=== PATIENT | male | born 1945 | race Caucasian/White ===

== ENCOUNTER 2018-08-23 17:28 | Inpatient (IN) ==
[2018-08-23] MEDS ORDERED: oxyCODONE HCL 5 MG TABLET PO PRN (19:15)
[2018-08-23] MEDS ORDERED: ONDANSETRON 4 MG/2 ML VIAL IV PRN (19:15)
[2018-08-23] MEDS ORDERED: BISACODYL 10 MG SUPP.RECT PR PRN (19:15)
[2018-08-23] MEDS ORDERED: NALOXONE HCL 0.4 MG/ML VIAL IV PRN (19:15)
[2018-08-23] MEDS ORDERED: DEXTROSE 50% 50 ML VIAL IV PRN (19:20)
[2018-08-23] MEDS ORDERED: DEXTROSE 31 GM ORAL.SUSP PO PRN (19:20)
--- NOTE | 2018-08-23 19:31 | Internal Med History&Physical ---
Medical - H&P: HPI Patient information: Note initiated : 08/23/18 at 7:22 pm Service Date, if different from initiated Date: [] Patient: Kemar Farris a 72 y/o M admitted on 08/23/18 for acute kidney injury. Chief Complaint: [] History of present illness: Mr. Farris is a 72 year old M presented to the hospital today from outside facility as a direct admit The patient has h/o DM, HTN, HLD, presented to the his PCP for evaluation of not feeling well, subjective sensation of chills, and weight loss of 18 lbs over 1 month, his PCP ran some labs which showed a creat > 4.0, pt was therefore sent to the ER The patient notes that approximately 4-6 weeks ago he had an episode of vomiting, and stomach upset, since then he has been having intermittent chills. The patient has had decreased appetite and has not been eating and drinking well since then. He has progressively lost 18 pounds of weight over this time. The patient was concerned about this and finally went to see his primary care provider. His PCP ran some labs found his creatinine was elevated and advised him to go to the emergency room for further evaluation. According to the patient he has had chronic abdominal pain, bloating-like sensation mild no aggravating or relieving factors, he has been taking some NSAIDs for his subjective sensation of chills as well as the abdominal pain and headaches. The patient denies any diarrhea, but has had increased nausea and decreased appetite. The patient has chronic headaches, has had intermittent blurring of vision which she attributes to low sugar values. The patient also reports some dizziness mild. He denies any difficulty in swallowing, he had only one episode of vomiting and since then none, denies any blood in the stools denies any diarrhea. He does admit to having some burning when he pees, he denies any blood in the stools. He denies any cough chest pain shortness of breath skin rashes joint pains he denies any bleeding from gums denies any depression. He does have history of chronic headaches he notes that he has had multiple workup done for same. His PCP started him on topiramate approximately 6 weeks ago. He was on topiramate in the past however has not been released taking it but started taking it at 50 mg strength 6 weeks ago. He stopped it a few days ago. The patient has also been taking his hydrochlorothiazide lisinopril and atorvastatin, he has not been very compliant with his metformin because he was concerned about his sugars dropping In the emergency room at the outside facility, the patient had a normal WBC count at 7.2, hemoglobin 13.3 platelets 223 hematocrit 39.5, sodium 138 potassium 3.8 chloride 104 bicarbonate 19 BUN 90 creatinine 4.2 glucose 195, anion gap 15, total protein was 7.5 calcium 7.8 total bilirubin normal liver function test was normal lipase were mildly elevated at 244, A1c was 7.2 CT abdomen pelvis was done which reports no acute findings, 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 The patient reports he had a chest x-ray done the ER provider did report that the patient chest x-ray was negative I did not find a report along with the paperwork sent The outside facility did not have nephrology coverage and therefore the patient was sent here for further evaluation All systems: reviewed and no additional remarkable complaints except as stated (as per HPI rest negative) Medical - H&P: PMH Medical history: HTN DM HLD Chr Headche chr abdominal bloating Surgical history: achillis tendon repair/ tear Family history: reviewed and not pertinent Social history: ex smoker, quit 50 yrs ago occasional etoh no thc denies other recreational drug use Medical - H&P: Exam - Constitutional Exam: GENERAL: The patient is a well-developed, thin gentleman in no apparent distress. Is alert and oriented x3. VITAL SIGNS: Reviewed and as noted elsewhere. HEENT: Head is normocephalic and atraumatic. Extraocular muscles are intact. Pupils are equal, round, and reactive to light. Nares appeared normal. Mouth appears any without lesions, has poor dentition with missing teeth. Mucous membranes are dry NECK: Normal to inspection, Supple, No lymphadenopathy or thyromegaly. LUNGS: Air entry equal on both sides, no wheezing, crackles or rhonchi noted. No accessory muscles of respiration HEART: Regular rate and rhythm normal, S1 and S2 heard, no Gallop, S3 or Rub Noted, No Gross murmur heard. ABDOMEN: Soft, nontender, and nondistended. Positive bowel sounds. No hepat osplenomegaly was noted. EXTREMITIES: No cyanosis, clubbing, rash, lesions or edema. NEUROLOGIC: Cranial nerves II through XII are grossly intact. Motor and Sensory System Grossly Intact PSYCHIATRIC: Normal affect, Normal Mood. Appropriate Behavior. SKIN: No ulceration or wounds noted, No jaundice, No rash noted. Medical - H&P: A/P - Narrative A/P Narrative: A/P Acute Kidney Injury -Due to dehydration/ decreased intake/ use of HCTZ/lisinopril and NSAIDs. recheck labs check CK, UA, urine lytes, prot creat ration. CT is neg for hydronephrosis. Pt making urine, monitor I/O, avoid nephrotoxic agents, Nephrology consulted. Nausea/ Abdominal discomfort/ weight loss - could be from use of topiramate, Uremia could be causing same, PPI for now. CT Was negative. check tsh, HIV< esr crp, Check blood cx given pt has complained about chills persistent. Acidosis - Pt has bicarb of 19, acidotic from topiramate(has carbonic anhydrase like activity), vs renal failure, IV fluids for now, pt making urine DM -ssi insulin for now.hold metformin HTN -Hold bp meds HLD - continue statin/ verify dose DVT -HEP sq Diet -Carb consistent/renal Code status -Full code
--- NOTE | 2018-08-23 19:37 | Nephrology Consult Note ---
History of Present Illness - Reason for Consult Patient information: Note initiated : 08/23/18 at 7:35 pm Patient: Kemar Farris 72 y/o M admitted on 08/23/18 for acute kidney injury. Consult date: 08/23/18 acute renal failure, metabolic acidosis Requesting physician: Alvin Mccall - Chief Complaint Weakness - History of Present Illness Kemar Farris is a 72-year-old male with diabetes mellitus type 2, hypertension and hyperlipidemia admitted directly from ED in [place], [place] for acute kidney injury. He was referred to ED from his PCP after he presented for vague symptoms of weakness, anorexia, weight loss and chills which started 3-4 weeks ago. His oral intake was decreased and he felt dehydrated. He was recently started on Topamax. He quit taking Metformin couple days ago, but has been taking other med ications until today. No history of kidney or urinary problems other than passing a kidney stone years ago. Review of Systems Constitutional: anorexia, chills, weakness, weight loss Nose, mouth and throat: no nasal congestion, no sore throat Cardiovascular: no chest pain, no palpatations Respiratory: no cough, no dyspnea Gastrointestinal: no abdominal pain, no diarrhea, no nausea, no vomiting Genitourinary: dysuria, no hematuria Musculoskeletal: no joint swelling, no neck pain Integumentary: no lesions, no rash, no wounds Neurological: no confusion, no focal weakness Psychiatric: no anxiety, no panic attacks Endocrine: no cold intolerance, no heat intolerance Hematologic/Lymphatic: no easy bleeding, no easy bruising Allergic/Immunologic: no tongue swelling, no uticaria Past History Past medical history: Diabetes mellitus type 2 Hypertension Hyperlipidemia Past surgical history: Achillis tendon repair Past family history: No history of kidney disease Past social history: quit smoking 50 yrs ago occasional alcohol denies other recreational drug use Medications and Allergies Allergies Allergy/AdvReac Type Severity Reaction Status Date / Time No Known Drug Allergies Allergy Verified 08/23/18 19:45 Exam - General Appearance General appearance: appears started age, fatigue EENT: mucous membranes moist Neck: supple Respiratory: clear Cardiology: no edema Gastrointestinal: no tenderness Integumentary: no rash, warm and dry Neurologic: no focal deficit, alert and oriented x3 Musculoskeletal: no deformities Psychiatric: mood/affect appropriate, cooperative Results - Lab Results 08/23/18 19:39 08/23/18 19:39 Assessment and Plan (1) Acute kidney injury Acute kidney injury on suspected chronic kidney disease stage 3, present on arrival. He has been taking NSAIDs on and off. No recent IV contrast administration. He reported feeling dehydrated with decreased oral intake. He h as been taking Topamax, Metformin, Lisinopril and HCTZ. Work up at [place], [place] on 08/23/18: CT: Normal kidneys except left sided cyst U/A bland CBC: WBC 7.8, Hb 13, PLT 223 BMP: Sodium 138, potassium 4.3, chloride 104, CO2 19, BUN 90, creatinine 4.2, Ca 9.8, albumin 4.4. Discussion: Metabolic acidosis with both high anion gap (15) and non anion gap since delta AG 3, but delta CO2 5 associated with Topamax which is carbonic anhydrase inhibitor, Metformin and acute kidney injury. Suspected dehydration. Recommendations: No need for acute hemodialysis. IV fluid hydration. Holding Topamax, Metformin, Lisinopril and HCTZ. Status: Acute Priority: High (2) Metabolic acidosis Please see above Status: Acute Priority: Medium
[2018-08-23] MEDS: HEPARIN 5,000 UNIT/ML VIAL SQ SCH (20:00)
[2018-08-23] MEDS: 0.9 % SODIUM CHLORIDE 10 ML SYRINGE IV SCH (20:00)
[2018-08-23] MEDS: LACTATED RINGERS 1,000 ML IV SCH (20:00)
[2018-08-23] MEDS: INSULIN LISPRO 1 UNIT/0.01 ML UNIT SQ SCH (20:03)
[2018-08-23] MEDS: DOCUSATE SODIUM 100 MG CAPSULE PO SCH (20:03)
[2018-08-23 20:12] LABS: Basophils # (Auto) 0 K/mcL (0.0-0.3); Basophils % (Auto) 0.6 % (0.0-2.0); Eosinophils # (Auto) 0.2 K/mcL (0.0-0.7); Eosinophils % (Auto) 2.6 % (0.0-7.0); Granulocytes % (Auto) 67.3 % (38.0-78.0); Lymphocytes # (Auto) 1.4 K/mcL (1.5-4.8); Lymphocytes % (Auto) 20.9 % (15.5-49.0); Mean Cell Volume 94.4 fL (80.0-100.0); Mean Corpuscular HGB Conc 33.8 g/dL (31.0-36.0); Monocytes # (Auto) 0.6 K/mcL (0.1-0.9); Monocytes % (Auto) 8.6 % (1.0-12.0); Platelet Count 178 K/mcL (140-440); RBC 3.77 M/mcL (4.50-5.90); Red Cell Distribution Width 13.4 % (11.5-14.5)
[2018-08-23 20:44] LABS: ALT/SGPT 16 U/l (0-40); Albumin 4.1 gm/dL (3.2-5.2); Albumin/Globulin Ratio 1.4 (1.0-2.3); Alkaline Phosphatase 52 U/L (39-117); Bilirubin,Direct < 0.2 mg/dL (0.0-0.3); Blood Urea Nitrogen 77 mg/dl (8-23); C-Reactive Protein < 0.3 mg/dl (0.0-0.8); Gamma Glutamyl Transpeptidase 14 U/L (8-61); Uric Acid 9.3 mg/dL (2.5-8.0)
[2018-08-23 20:55] LABS: Erythrocyte Sedimentation Rate 27 mm/hr (0-15)
[2018-08-23] MEDS ORDERED: HEPARIN 5,000 UNIT/ML VIAL SQ SCH (21:00)
[2018-08-23 23:19] LABS: Appearance,Urine CLEAR; Bacteria,Urine 0 /hpf (0); Bilirubin,Urine NEG (NEG); Color,Urine STRAW; Glucose,Urine (UA) NEGATIVE (NEG); Leukocyte Esterase,Urine NEG /uL (NEG); Mucus,Urine FEW /hpf (0); Protein,Urine NEG (NEG); Specific Gravity,Urine 1.015 (1.000-1.035); Urine Blood NEG mg/dL (<0.03); Urine Hyaline Cast 1 /lpf (0-2); Urine RBC 0 /hpf (0-1); Urine Squamous Epithelial Cell 0 /hpf (0-4); Urine WBC 1 /hpf (0-4); Urobilinogen,Urine NEG (NEG)
[2018-08-24] MEDS: LACTATED RINGERS 1,000 ML IV SCH ×4 (02:53→22:42)
[2018-08-24] MEDS: 0.9 % SODIUM CHLORIDE 10 ML SYRINGE IV SCH ×3 (04:56→20:49)
[2018-08-24 05:15] LABS: Basophils # (Auto) 0 K/mcL (0.0-0.3); Basophils % (Auto) 0.6 % (0.0-2.0); Eosinophils # (Auto) 0.3 K/mcL (0.0-0.7); Eosinophils % (Auto) 4.2 % (0.0-7.0); Granulocytes % (Auto) 61.8 % (38.0-78.0); Lymphocytes # (Auto) 1.7 K/mcL (1.5-4.8); Lymphocytes % (Auto) 25.6 % (15.5-49.0); Mean Cell Volume 95.2 fL (80.0-100.0); Mean Corpuscular HGB Conc 34.4 g/dL (31.0-36.0); Monocytes # (Auto) 0.5 K/mcL (0.1-0.9); Monocytes % (Auto) 7.8 % (1.0-12.0); Platelet Count 164 K/mcL (140-440); RBC 3.39 M/mcL (4.50-5.90); Red Cell Distribution Width 13.2 % (11.5-14.5)
[2018-08-24 05:40] LABS: ALT/SGPT 13 U/l (0-40); Albumin 3.8 gm/dL (3.2-5.2); Albumin/Globulin Ratio 1.5 (1.0-2.3); Alkaline Phosphatase 45 U/L (39-117); Bilirubin,Direct < 0.2 mg/dL (0.0-0.3); Blood Urea Nitrogen 65 mg/dl (8-23); Gamma Glutamyl Transpeptidase 13 U/L (8-61); Uric Acid 8.4 mg/dL (2.5-8.0)
--- NOTE | 2018-08-24 07:33 | Nephrology Progress Note ---
Subjective Patient information: Note initiated : 08/24/18 at 7:31 am Patient: Kemar Farris 72 y/o M admitted on 08/23/18 for acute kidney injury. Chief Complaint: Weakness Principal diagnosis: Acute kidney injury Pertinent ROS: Weakness No chest pain No abdominal pain No dysuria or hematuria No edema No skin rash Objective - Vital Signs Vital signs: Vital Signs Temp Pulse Resp BP Pulse Ox 08/24/18 06:57 97.4 F 63 16 119/74 97 08/24/18 03:45 98.6 F 65 18 118/70 98 08/24/18 00:00 99.4 F H 70 20 112/68 97 08/23/18 18:45 97.1 F 77 18 132/73 100 Intake and Output 08/23/18 08/24/18 08/24/18 21:59 05:59 13:59 Intake Total 1150 Output Total 650 200 Balance 500 -200 Intake: IV 1000 Lactated Ringers 1,000 ml @ 150 1000 mls/hr IV .Q6H40M [facility]OOKE Rx#: [id number] Oral 150 Output: Urine Catheter Amount 250 200 Void Amount 400 Other: Meal Nourishment/Supplement Percent of Meal Consumed 75% Feeding Ability Independent Nourishment/Supplement name sandwich Urine Appearance Clear Clear Urine Color Pale Straw Urine Odor Normal Normal # Voids 1 1 1 # Bowel Movements 1 1 Weight 125 lb Intake & Output: Intake & Output 08/23/18 08/24/18 08/24/18 21:59 05:59 13:59 Intake Total 1150 Output Total 650 200 Balance 500 -200 Weight 125 lb Intake: IV 1000 Lactated Ringers 1,000 ml @ 150 1000 mls/hr IV .Q6H40M [facility] Rx#: [id number] Oral 150 Output: Urine Catheter Amount 250 200 Void Amount 400 Other: Meal Nourishment/Supplement Percent of Meal Consumed 75% Feeding Ability Independent Nourishment/Supplement name sandwich Urine Appearance Clear Clear Urine Color Pale Straw Urine Odor Normal Normal # Voids 1 1 1 # Bowel Movements 1 1 - General Appearance General appearance: appears started age, fatigue EENT: mucous membranes moist Neck: supple Respiratory: clear Cardiology: no edema Gastrointestinal: no tenderness Integumentary: no rash, warm and dry Neurologic: no focal deficit, alert and oriented x3 Musculoskeletal: no deformities Psychiatric: mood/affect appropriate, cooperative - Lab 08/24/18 04:10 08/24/18 04:10 Most recent lab results Calcium 9.2 mg/dl (8.6-10.4) 08/24/18 04:10 Phosphorus 3.2 mg/dL (2.7-4.5) 08/24/18 04:10 Magnesium 1.8 mg/dL (1.6-2.5) 08/24/18 04:10 Assessment and Plan (1) Acute kidney injury Kemar Farris is a 72-year-old male with diabetes mellitus type 2, hypertension and hyperlipidemia admitted directly from ED in [place], [place] for acute kidney injury on 08/23/18. He was referred to ED from his PCP after he presented for vague symptoms of weakness, anorexia, weight loss and chills which started 3-4 weeks ago. His oral intake was decreased and he felt dehydrated. He was recently started on Topamax. He quit taking Metformin couple days ago, but has been taking other medications until today. No history of kidney or urinary problems other than passing a kidney stone years ago. Acute kidney injury on suspected chronic kidney disease stage 3, present on arrival with metabolic acidosis (both high anion gap and non anion gap since delta AG 3, but delta CO2 5 associated with Topamax which is carbonic anhydrase inhibitor, Metformin and acute kidney injury) and suspected dehydration. He has been taking NSAIDs on and off. No recent IV contrast administration. He reported feeling dehydrated with decreased oral intake. He has been taking Topamax, Metformin, Lisinopril and HCTZ. Work up at [place], [place] on 08/23/18: CT: Normal kidneys except left sided cyst U/A bland CBC: WBC 7.8, Hb 13, PLT 223 BMP: Sodium 138, potassium 4.3, chloride 104, CO2 19, BUN 90, creatinine 4.2, Ca 9.8, albumin 4.4. Work up: Urinalysis on 08/23/18: straw, clear, pH 5, SG 1.015, protein negative, occult blood negative, leukocyte esterase negative. Random urine protein/creatinine on 08/23/18: 210 mg/g creatinine. Random urine sodium on 08/23/18: 73 Progress: Urine output: 850 ml reported in the past 24 hours. Serum creatinine decreased from 4.1 to 3.2 in the past 12 hours Metabolic acidosis, improved and high anion gap part resolved. Recommendations: No need for acute hemodialysis. Holding Topamax, Metformin, Lisinopril and HCTZ. Status: Acute Priority: High (2) Metabolic acidosis Please see above Status: Acute Priority: Medium
[2018-08-24] MEDS: PANTOPRAZOLE 40 MG TABLET PO SCH (07:59)
[2018-08-24] MEDS: INSULIN LISPRO 1 UNIT/0.01 ML UNIT SQ SCH ×4 (07:59→20:49)
[2018-08-24] MEDS: DOCUSATE SODIUM 100 MG CAPSULE PO SCH ×2 (10:10→20:48)
[2018-08-24] MEDS: HEPARIN 5,000 UNIT/ML VIAL SQ SCH ×2 (10:10→20:48)
--- NOTE | 2018-08-24 10:32 | Internal Med Progress Note ---
Medical - PN: Subj Patient information: Note initiated : 08/24/18 at 10:29 am Service Date, if different from initiated Date: [] Patient: Kemar Farris a 72 y/o M admitted on 08/23/18 for acute kidney injury. Chief Complaint: [] Interval history: Mr. Farris is a 72 year old M presented to the hospital today from outside facility as a direct admit The patient has h/o DM, HTN, HLD, presented to the his PCP for evaluation of not feeling well, subjective sensation of chills, and weight loss of 18 lbs over 1 month, his PCP ran some labs which showed a creat > 4.0, pt was therefore sent to the ER The patient notes that approximately 4-6 weeks ago he had an episode of vomiting, and stomach upset, since then he has been having intermittent chills. The patient has had decreased appetite and has not been eating and drinking well since then. He has progressively lost 18 pounds of weight over this time. The patient was concerned about this and finally went to see his primary care provider. His PCP ran some labs found his creatinine was elevated and advised him to go to the emergency room for further evaluation. According to the patient he has had chronic abdominal pain, bloating-like sensation mild no aggravating or relieving factors, he has been taking some NSAIDs for his subjective sensation of chills as well as the abdominal pain and headaches. The patient denies any diarrhea, but has had increased nausea and decreased appetite. The patient has chronic headaches, has had intermittent blurring of vision which she attributes to low sugar values. The patient also reports some dizziness mild. He denies any difficulty in swallowing, he had only one episode of vomiting and since then none, denies any blood in the stools denies any diarrhea. He does admit to having some burning when he pees, he denies any blood in the stools. He denies any cough chest pain shortness of breath skin rashes joint pains he denies any bleeding from gums denies any depression. He does have history of chronic headaches he notes that he has had multiple workup done for same. His PCP started him on topiramate approximately 6 weeks ago. He was on topiramate in the past however has not been released taking it but started taking it at 50 mg strength 6 weeks ago. He stopped it a few days ago. The patient has also been taking his hydrochlorothiazide lisinopril and atorvastatin, he has not been very compliant with his metformin because he was concerned about his sugars dropping In the emergency room at the outside facility, the patient had a normal WBC count at 7.2, hemoglobin 13.3 platelets 223 hematocrit 39.5, sodium 138 potassium 3.8 chloride 104 bicarbonate 19 BUN 90 creatinine 4.2 glucose 195, anion gap 15, total protein was 7.5 calcium 7.8 total bilirubin normal liver function test was normal lipase were mildly elevated at 244, A1c was 7.2 CT abdomen pelvis was done which reports no acute findings, 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 The patient reports he had a chest x-ray done the ER provider did report that the patient chest x-ray was negative I did not find a report along with the paperwork sent The outside facility did not have nephrology coverage and therefore the patient was sent here for further evaluation 08/24 Pt seen examined, no acute overnight issues, tolerating po diet well, renal function improving, creat is 3.2, IVF continuing appreciate Nephrology help wbc normal. Pertinent ROS: still has some chills Denies headache, dizziness Denies chest pain, palpitations Denies cough or shortness of breath Denies abdominal pain, nausea or vomiting. - Constitutional Vitals: Vital Signs Temp Pulse Resp BP Pulse Ox 97.4 F 63 16 119/74 97 08/24/18 06:57 08/24/18 06:57 08/24/18 06:57 08/24/18 06:57 08/24/18 08:00 Period Temp Pulse Resp BP Sys/Magdaleno Pulse Ox Last 24 Hr 97.1 F-99.4 F 63-77 16-20 112-132/68-74 97-100 Intake and Output 08/23/18 08/24/18 08/24/18 21:59 05:59 13:59 Intake Total 1150 1500 Output Total 650 575 Balance 500 925 Weight 125 lb Intake & Output: Intake & Output 08/23/18 08/24/18 08/24/18 21:59 05:59 13:59 Intake Total 1150 1500 Output Total 650 575 Balance 500 925 Weight 125 lb Intake: IV 1000 1000 Lactated Ringers 1,000 ml @ 150 1000 1000 mls/hr IV .Q6H40M [facility] Rx#: [id number] Oral 150 500 Output: Urine Catheter Amount 250 200 Void Amount 400 375 Other: Meal Nourishment/Supplement Breakfast Percent of Meal Consumed 75% 75% Feeding Ability Independent Independent Nourishment/Supplement name sandwich Urine Appearance Clear Clear Urine Color Pale Straw Urine Odor Normal Normal # Voids 1 1 1 # Bowel Movements 1 1 Exam: Constitutional; Afebrile, cooperative, alert, not in distress. Eyes- No icterus, , No periorbital swelling Ears- Ext ear normal, hearing normal to conversation. Neck- Midline trachea, supple Respiratory system: Air Entry equal on both sides, No crackles or wheezing, no rhonchi. CVS- Rate rhythm regular, S1,S2 heard, no gallop, no rub. 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 Medical - PN: Obj Da - Labs CBC & Chem 7: 08/24/18 04:10 08/24/18 04:10 Labs: Abnormal Lab Results 08/24/18 08/24/18 08/23/18 04:10 04:10 22:45 RBC 3.39 L Hgb 11.1 L Hct 32.2 L Lymph # (Auto) ESR Chloride 112 H Carbon Dioxide 21 L BUN 65 H Creatinine 3.2 H Glucose 151 H Uric Acid 8.4 H Triglycerides 188 H U [place] Prot/Creat Ratio 0.21 H 08/23/18 08/23/18 19:39 19:39 RBC 3.77 L Hgb 12.0 L Hct 35.6 L Lymph # (Auto) 1.4 L ESR 27 H Chloride Carbon Dioxide 19 L BUN 77 H Creatinine 4.1 H Glucose 165 H Uric Acid 9.3 H Triglycerides 201 H U [place] Prot/Creat Ratio Meds: Medications Acetaminophen (Tylenol) 650 mg PO Q6HP PRN PRN Reason: PAIN/FEVER > 101 Bisacodyl (Dulcolax) 10 mg PA Q2-3DAYS PRN PRN Reason: Constipation Dextrose (Dextrose 50%) 0 ml IV UD PRN PRN Reason: Hypoglycemia Diagnostic Test (Pha) (Accu-Chek) 1 each FS ACHS [facility] Last Admin: 08/24/18 07:05 Dose: 1 each Documented by: Docusate Sodium (Colace) 100 mg PO BID [facility] Last Admin: 08/24/18 10:10 Dose: Not Given Documented by: Glucose (Insta-Glucose) 15 gm PO PRN PRN PRN Reason: Hypoglycemia Heparin Sodium (Porcine) (Heparin) 5,000 unit SQ Q12 [facility] Last Admin: 08/24/18 10:10 Dose: Not Given Documented by: Lactated Ringer's (Lactated Ringers) 1,000 mls @ 150 mls/hr IV .Q6H40M [facility] Last Admin: 08/24/18 09:48 Dose: 150 mls/hr Documented by: Insulin Human Lispro (Humalog) 0 unit SQ ACHS [facility]; Protocol Last Admin: 08/24/18 07:59 Dose: 1 unit Documented by: Naloxone HCl (Narcan) 0.1 mg IV Q2MIN PRN PRN Reason: Opiate Reversal Non-Formulary Medication (Atorvastatin Calcium) 40 mg PO DAILY [facility] Ondansetron HCl (Zofran) 4 mg IV Q6HP PRN PRN Reason: Nausea And Vomiting Oxycodone HCl (Roxicodone) 5 mg PO Q4HP PRN PRN Reason: pain not controlled by apap Pantoprazole Sodium (Protonix) 40 mg PO QAMAC [facility] Last Admin: 08/24/18 07:59 Dose: 40 mg Documented by: Pneumococcal Polyvalent Vaccine (Pneumovax 23) 0.5 ml IM .ONCE ONE Stop: 08/25/18 10:01 Sodium Chloride (Saline Flush) 10 ml IV Q8 [facility] Last Admin: 08/24/18 04:56 Dose: Not Given Documented by: Medical - PN: A/P - Time Spent With Patient Total time spent is greater than 50% in coordination of care (as documented) at patient's floor/unit and/or counseling patient: - Narrative A/P Narrative: A/P Acute Kidney Injury -Due to dehydration/ decreased intake/ use of HCTZ/lisinopril and NSAIDs. recheck labs check CK, UA, urine lytes, prot creat ration. CT is neg for hydronephrosis. Pt making urine, monitor I/O, avoid nephrotoxic agents, Nephrology consulted. FENA 2.9 UA negative. Nausea/ Abdominal discomfort/ weight loss - could be from use of topiramate, Uremia could be causing same, PPI for now. CT Was negative. tsh, hiv negative Acidosis - Pt has bicarb of 21 today, acidotic from topiramate(has carbonic anhydrase like activity), vs renal failure, IV fluids for now, pt making urine DM -ssi insulin for now.hold metformin HTN -Hold bp meds HLD - continue statin DVT -HEP sq Diet -Carb consistent/renal Code status -Full code Medical - PN: Qual - VTE Deep Vein Thrombosis/Pulmonary Embolism Present on Admission: No
[2018-08-24] MEDS ORDERED: TOPIRAMATE 25 MG TABLET PO SCH (21:00)
[2018-08-25] MEDS: ACETAMINOPHEN 325 MG TABLET PO PRN ×2 (00:45→13:52)
[2018-08-25 04:58] LABS: Basophils # (Auto) 0 K/mcL (0.0-0.3); Basophils % (Auto) 0.5 % (0.0-2.0); Eosinophils # (Auto) 0.2 K/mcL (0.0-0.7); Eosinophils % (Auto) 3.3 % (0.0-7.0); Granulocytes % (Auto) 57.1 % (38.0-78.0); Lymphocytes # (Auto) 2.1 K/mcL (1.5-4.8); Lymphocytes % (Auto) 30.5 % (15.5-49.0); Mean Cell Volume 96.2 fL (80.0-100.0); Mean Corpuscular HGB Conc 33.2 g/dL (31.0-36.0); Monocytes # (Auto) 0.6 K/mcL (0.1-0.9); Monocytes % (Auto) 8.6 % (1.0-12.0); Platelet Count 135 K/mcL (140-440); RBC 3.12 M/mcL (4.50-5.90); Red Cell Distribution Width 13.1 % (11.5-14.5)
[2018-08-25] MEDS: 0.9 % SODIUM CHLORIDE 10 ML SYRINGE IV SCH ×4 (05:03→20:51)
[2018-08-25] MEDS: LACTATED RINGERS 1,000 ML IV SCH (05:14)
[2018-08-25 05:19] LABS: ALT/SGPT 11 U/l (0-40); Albumin 3.2 gm/dL (3.2-5.2); Albumin/Globulin Ratio 1.4 (1.0-2.3); Alkaline Phosphatase 38 U/L (39-117); Bilirubin,Direct < 0.2 mg/dL (0.0-0.3); Blood Urea Nitrogen 40 mg/dl (8-23); Gamma Glutamyl Transpeptidase 11 U/L (8-61); Uric Acid 6.6 mg/dL (2.5-8.0)
--- NOTE | 2018-08-25 06:40 | Nephrology Progress Note ---
Subjective Patient information: Note initiated : 08/25/18 at 6:37 am Patient: Kemar Farris 72 y/o M admitted on 08/23/18 for acute kidney injury. Chief Complaint: Weakness Principal diagnosis: Acute kidney injury Pertinent ROS: Weakness Not feeling better No chest pain No abdominal pain No dysuria or hematuria No edema No skin rash Objective - Vital Signs Vital signs: Vital Signs Temp Pulse Resp BP Pulse Ox 08/25/18 06:31 98.6 F 20 128/72 95 08/25/18 03:45 98.2 F 64 16 127/71 97 08/24/18 22:44 98.0 F 56 L 16 133/75 98 08/24/18 19:07 97.8 F 68 16 117/71 96 08/24/18 16:00 98.5 F 20 123/69 96 08/24/18 11:19 98.9 F 16 111/67 97 08/24/18 08:00 97 08/24/18 06:57 97.4 F 63 16 119/74 97 Intake and Output 08/24/18 08/25/18 08/25/18 21:59 05:59 13:59 Intake Total 1300 1180 Output Total 425 300 125 Balance 875 880 -125 Intake: IV 1000 980 Lactated Ringers 1,000 ml @ 150 1000 980 mls/hr IV .Q6H40M [facility] Rx#: [id number] Oral 300 200 Output: Void Amount 425 300 125 # of times incontinent of urine 0 Other: Urine Appearance Clear Clear Clear Urine Color Pale Pale Pale Urine Odor Normal Normal # Voids 1 1 # Bowel Movements 1 Weight 128 lb 8 oz Intake & Output: Intake & Output 08/24/18 08/25/18 08/25/18 21:59 05:59 13:59 Intake Total 1300 1180 Output Total 425 300 125 Balance 875 880 -125 Weight 128 lb 8 oz Intake: IV 1000 980 Lactated Ringers 1,000 ml @ 150 1000 980 mls/hr IV .Q6H40M [facility] Rx#: [id number] Oral 300 200 Output: Void Amount 425 300 125 # of times incontinent of urine 0 Other: Urine Appearance Clear Clear Clear Urine Color Pale Pale Pale Urine Odor Normal Normal # Voids 1 1 # Bowel Movements 1 - General Appearance General appearance: appears started age, fatigue EENT: mucous membranes moist Neck: supple Respiratory: clear Cardiology: no edema Gastrointestinal: no tenderness Integumentary: warm and dry Neurologic: no focal deficit, alert and oriented x3 Musculoskeletal: no deformities Psychiatric: mood/affect appropriate, cooperative - Lab 08/25/18 03:40 08/25/18 03:40 Most recent lab results Calcium 8.8 mg/dl (8.6-10.4) 08/25/18 03:40 Phosphorus 2.3 mg/dL (2.7-4.5) L 08/25/18 03:40 Magnesium 1.5 mg/dL (1.6-2.5) L 08/25/18 03:40 Assessment and Plan (1) Acute kidney injury Kemar Farris is a 72-year-old male with diabetes mellitus type 2, hypertension and hyperlipidemia admitted directly from ED in [place], [place] for acute kidney injury on 08/23/18. He was referred to ED from his PCP after he presented for vague symptoms of weakness, anorexia, weight loss and chills which started 3-4 weeks ago. His oral intake was decreased and he felt dehydrated. He was recently started on Topamax. He quit taking Metformin couple days ago, but has been taking other medications until today. No history of kidney or urinary problems other than passing a kidney stone years ago. Acute kidney injury on suspected chronic kidney disease stage 3, present on arrival with metabolic acidosis (both high anion gap and non anion gap since delta AG 3, but delta CO2 5 associated with Topamax which is carbonic anhydrase inhibitor, Metformin and acute kidney injury) and suspected dehydration. He has been taking NSAIDs on and off. No recent IV contrast administration. He reported feeling dehydrated with decreased oral intake. He has been taking Topamax, Metformin, Lisinopril and HCTZ. Work up at [place], [place] on 08/23/18: CT: Normal kidneys except left sided cyst U/A bland CBC: WBC 7.8, Hb 13, PLT 223 BMP: Sodium 138, potassium 4.3, chloride 104, CO2 19, BUN 90, creatinine 4.2, Ca 9.8, albumin 4.4. Work up: Urinalysis on 08/23/18: straw, clear, pH 5, SG 1.015, protein negative, occult blood negative, leukocyte esterase negative. Random urine protein/creatinine on 08/23/18: 210 mg/g creatinine. Random urine sodium on 08/23/18: 73 Progress: Urine output: 1310 ml reported in the past 24 hours. Serum creatinine decreased from 3.2 to 2.3 in the past 24 hours Metabolic acidosis, resolved. Recommendations: No need for acute hemodialysis. Status: Acute Priority: High (2) Metabolic acidosis Please see above Status: Resolved Priority: Medium
[2018-08-25] MEDS ORDERED: MAGNESIUM SULFATE 2 GM/50 ML BAG IV ONE (07:26)
[2018-08-25] MEDS: INSULIN LISPRO 1 UNIT/0.01 ML UNIT SQ SCH ×4 (07:39→19:56)
[2018-08-25] MEDS: PANTOPRAZOLE 40 MG TABLET PO SCH (07:49)
[2018-08-25] MEDS: DOCUSATE SODIUM 100 MG CAPSULE PO SCH ×2 (08:20→19:58)
[2018-08-25] MEDS: HEPARIN 5,000 UNIT/ML VIAL SQ SCH ×2 (08:20→19:58)
--- NOTE | 2018-08-25 08:35 | Internal Med Progress Note ---
Medical - PN: Subj Patient information: Note initiated : 08/25/18 at 8:31 am Service Date, if different from initiated Date: [] Patient: Kemar Farris 72 y/o M admitted on 08/23/18 for acute kidney injury. Chief Complaint: [] Interval history: Mr. Farris is a 72 year old M presented to the hospital today from outside facility as a direct admit The patient has h/o DM, HTN, HLD, presented to the his PCP for evaluation of not feeling well, subjective sensation of chills, and weight loss of 18 lbs over 1 month, his PCP ran some labs which showed a creat > 4.0, pt was therefore sent to the ER The patient notes that approximately 4-6 weeks ago he had an episode of vomiting, and stomach upset, since then he has been having intermittent chills. The patient has had decreased appetite and has not been eating and drinking well since then. He has progressively lost 18 pounds of weight over this time. The patient was concerned about this and finally went to see his primary care provider. His PCP ran some labs found his creatinine was elevated and advised him to go to the emergency room for further evaluation. According to the patient he has had chronic abdominal pain, bloating-like sensation mild no aggravating or relieving factors, he has been taking some NSAIDs for his subjective sensation of chills as well as the abdominal pain and headaches. The patient denies any diarrhea, but has had increased nausea and decreased appetite. The patient has chronic headaches, has had intermittent blurring of vision which she attributes to low sugar values. The patient also reports some dizziness mild. He denies any difficulty in swallowing, he had only one episode of vomiting and since then none, denies any blood in the stools denies any diarrhea. He does admit to having some burning when he pees, he denies any blood in the stools. He denies any cough chest pain shortness of breath skin rashes joint pains he denies any bleeding from gums denies any depression. He does have history of chronic headaches he notes that he has had multiple workup done for same. His PCP started him on topiramate approximately 6 weeks ago. He was on topiramate in the past however has not been released taking it but started taking it at 50 mg strength 6 weeks ago. He stopped it a few days ago. The patient has also been taking his hydrochlorothiazide lisinopril and atorvastatin, he has not been very compliant with his metformin because he was concerned about his sugars dropping In the emergency room at the outside facility, the patient had a normal WBC count at 7.2, hemoglobin 13.3 platelets 223 hematocrit 39.5, sodium 138 potassium 3.8 chloride 104 bicarbonate 19 BUN 90 creatinine 4.2 glucose 195, a nion gap 15, total protein was 7.5 calcium 7.8 total bilirubin normal liver function test was normal lipase were mildly elevated at 244, A1c was 7.2 CT abdomen pelvis was done which reports no acute findings, 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 The patient reports he had a chest x-ray done the ER provider did report that the patient chest x-ray was negative I did not find a report along with the paperwork sent The outside facility did not have nephrology coverage and therefore the patient was sent here for further evaluation 08/24 Pt seen examined, no acute overnight issues, tolerating po diet well, renal function improving, creat is 3.2, IVF continuing appreciate Nephrology help wbc normal. 08/25 Pt seen examined, tolerating po diet well, creat improving nicely, still has chills etiology of this is uncertain, no e/o acute infection found d/c IVF today, if creat continues to improve, will d/c home tomorrow. Pertinent ROS: Denies headache, dizziness Denies chest pain, palpitations Denies cough or shortness of breath Denies abdominal pain, nausea or vomiting. - Constitutional Vitals: Vital Signs Temp Pulse Resp BP Pulse Ox 98.6 F 64 20 128/72 95 08/25/18 06:31 08/25/18 03:45 08/25/18 06:31 08/25/18 06:31 08/25/18 06:31 Period Temp Pulse Resp BP Sys/Magdaleno Pulse Ox Last 24 Hr 97.8 F-98.9 F 56-68 16-20 111-133/67-75 95-98 Intake and Output 08/24/18 08/25/18 08/25/18 21:59 05:59 13:59 Intake Total 1300 1180 Output Total 425 300 125 Balance 875 880 -125 Weight 128 lb 8 oz Intake & Output: Intake & Output 02/08/25/18 08/25/18 21:59 05:59 13:59 Intake Total 1300 1180 Output Total 425 300 125 Balance 875 880 -125 Weight 128 lb 8 oz Intake: IV 1000 980 Lactated Ringers 1,000 ml @ 150 1000 980 mls/hr IV .Q6H40M [facility] Rx#: [id number] Oral 300 200 Output: Void Amount 425 300 125 # of times incontinent of urine 0 Other: Urine Appearance Clear Clear Clear Urine Color Pale Pale Pale Urine Odor Normal Normal # Voids 1 1 # Bowel Movements 1 Exam: Constitutional; Afebrile, cooperative, alert, not in distress. Respiratory system: Air Entry equal on both sides, No crackles or wheezing, no rhonchi. CVS- Rate rhythm regular, S1,S2 heard, no gallop, no rub. Abdomen- Soft nontender abdomen, no organomegaly, no tenderness, no guarding or rigidity, [employer]- AOOx3, moving all extremities, no gross focal deficit noted. Medical - PN: Obj Da - Labs CBC & Chem 7: 08/25/18 03:40 08/25/18 03:40 Labs: Abnormal Lab Results 08/25/18 08/25/18 08/24/18 03:40 03:40 04:10 RBC 3.12 L Hgb 10.0 L Hct 30.0 L Plt Count 135 L Lymph # (Auto) ESR Chloride 109 H 112 H Carbon Dioxide 21 L Anion Gap 7.0 L BUN 40 H 65 H Creatinine 2.3 H 3.2 H Glucose 151 H 151 H Uric Acid 8.4 H Phosphorus 2.3 L Magnesium 1.5 L Alkaline Phosphatase 38 L Total Protein 5.5 L Triglycerides 180 H 188 H [place] Prot/Creat Ratio 08/24/18 08/23/18 08/23/18 04:10 22:45 19:39 RBC 3.39 L Hgb 11.1 L Hct 32.2 L Plt Count Lymph # (Auto) ESR Chloride Carbon Dioxide 19 L Anion Gap BUN 77 H Creatinine 4.1 H Glucose 165 H Uric Acid 9.3 H Phosphorus Magnesium Alkaline Phosphatase Total Protein Triglycerides 201 H [place] Prot/Creat Ratio 0.21 H 08/23/18 19:39 RBC 3.77 L Hgb 12.0 L Hct 35.6 L Plt Count Lymph # (Auto) 1.4 L ESR 27 H Chloride Carbon Dioxide Anion Gap BUN Creatinine Glucose Uric Acid Phosphorus Magnesium Alkaline Phosphatase Total Protein Triglycerides [place] Prot/Creat Ratio Meds: Medications Acetaminophen (Tylenol) 650 mg PO Q6HP PRN PRN Reason: PAIN/FEVER > 101 Last Admin: 08/25/18 00:45 Dose: 650 mg Documented by: Atorvastatin Calcium (Lipitor) 40 mg PO DAILY [facility] Bisacodyl (Dulcolax) 10 mg RI Q2-3DAYS PRN PRN Reason: Constipation Dextrose (Dextrose 50%) 0 ml IV UD PRN PRN Reason: Hypoglycemia Diagnostic Test (Pha) (Accu-Chek) 1 each FS [facility] Last Admin: 08/25/18 07:27 Dose: 1 each Documented by: Docusate Sodium (Colace) 100 mg PO BID [facility] Last Admin: 08/25/18 08:20 Dose: Not Given Documented by: Glucose (Insta-Glucose) 15 gm PO PRN PRN PRN Reason: Hypoglycemia Heparin Sodium (Porcine) (Heparin) 5,000 unit SQ Q12 [facility] Last Admin: 08/25/18 08:20 Dose: Not Given Documented by: Insulin Human Lispro (Humalog) 0 unit SQ [facility]; Protocol Last Admin: 08/25/18 07:39 Dose: 1 unit Documented by: Naloxone HCl (Narcan) 0.1 mg IV Q2MIN PRN PRN Reason: Opiate Reversal Ondansetron HCl (Zofran) 4 mg IV Q6HP PRN PRN Reason: Nausea And Vomiting Oxycodone HCl (Roxicodone) 5 mg PO Q4HP PRN PRN Reason: pain not controlled by apap Pantoprazole Sodium (Protonix) 40 mg PO QAMAC [facility] Last Admin: 08/25/18 07:49 Dose: 40 mg Documented by: Pneumococcal Polyvalent Vaccine (Pneumovax 23) 0.5 ml IM .ONCE ONE Stop: 08/25/18 10:01 Sodium Chloride (Saline Flush) 10 ml IV Q8 [facility] Last Admin: 08/25/18 05:03 Dose: Not Given Documented by: Medical - PN: A/P - Time Spent With Patient Total time spent is greater than 50% in coordination of care (as documented) at patient's floor/unit and/or counseling patient: - Narrative A/P Narrative: A/P Acute Kidney Injury -Renal function is improving, -Due to dehydration/ decreased intake/ use of HCTZ/lisinopril and NSAIDs. recheck labs check CK, UA, urine lytes, prot creat ration. CT is neg for hydronephrosis. Pt making urine, monitor I/O, avoid nephrotoxic agents, Nephrology consulted. FENA 2.9 UA negative. Nausea/ Abdominal discomfort/ weight loss - could be from use of topiramate, Uremia could be causing same, PPI for now. CT Was negative. tsh, hiv negative -outpatient follow up with PCP Chills - etiology? no e/o infection, labs stable, PCP follow up. Acidosis (resolved) - Pt has bicarb of 26 today, acidotic from topiramate(has carbonic anhydrase like activity), vs renal failure, IV fluids for now, pt making urine DM -ssi insulin for now.hold metformin HTN -continue to hold bp meds HLD - continue statin DVT -HEP sq Diet -Carb consistent/renal Code status -Full code Medical - PN: Qual - VTE Deep Vein Thrombosis/Pulmonary Embolism Present on Admission: No
[2018-08-25] MEDS: ATORVASTATIN 20 MG TABLET PO SCH (09:02)
[2018-08-25] MEDS ORDERED: PNEUMOCOCCAL 23-VAL P-SAC VAC 0.5 ML SYRINGE IM ONE (10:00)
[2018-08-26] MEDS: 0.9 % SODIUM CHLORIDE 10 ML SYRINGE IV SCH ×2 (03:55→04:19)
[2018-08-26 05:47] LABS: Basophils # (Auto) 0 K/mcL (0.0-0.3); Basophils % (Auto) 0.4 % (0.0-2.0); Eosinophils # (Auto) 0.3 K/mcL (0.0-0.7); Eosinophils % (Auto) 2.9 % (0.0-7.0); Lymphocytes # (Auto) 2.2 K/mcL (1.5-4.8); Lymphocytes % (Auto) 25.7 % (15.5-49.0); Mean Corpuscular HGB Conc 33.2 g/dL (31.0-36.0); Monocytes # (Auto) 0.6 K/mcL (0.1-0.9); Platelet Count 139 K/mcL (140-440); RBC 3.37 M/mcL (4.50-5.90)
[2018-08-26 06:18] LABS: ALT/SGPT 12 U/l (0-40); Albumin 3.4 gm/dL (3.2-5.2); Albumin/Globulin Ratio 1.4 (1.0-2.3); Alkaline Phosphatase 41 U/L (39-117); Bilirubin,Direct < 0.2 mg/dL (0.0-0.3); Blood Urea Nitrogen 25 mg/dl (8-23); Gamma Glutamyl Transpeptidase 11 U/L (8-61)
--- NOTE | 2018-08-26 06:30 | Nephrology Progress Note ---
Subjective Patient information: Note initiated : 08/26/18 at 6:27 am Patient: Kemar Farris 72 y/o M admitted on 08/23/18 for acute kidney injury. Chief Complaint: Weakness Principal diagnosis: Acute kidney injury Pertinent ROS: Weakness No chest pain No abdominal pain No dysuria or hematuria No edema No skin rash Objective - Vital Signs Vital signs: Vital Signs Temp Pulse Resp BP Pulse Ox 08/26/18 03:55 98.1 F 55 L 18 123/71 98 08/25/18 22:54 98.2 F 58 L 16 132/81 98 08/25/18 18:52 98.7 F 70 16 131/74 98 08/25/18 15:57 97.8 F 74 18 122/72 98 08/25/18 11:22 98.6 F 20 122/74 98 08/25/18 06:31 98.6 F 20 128/72 95 Intake and Output 08/25/18 08/26/18 08/26/18 21:59 05:59 13:59 Intake Total 240 300 Balance 240 300 Intake: Oral 240 300 Other: Meal Dinner Percent of Meal Consumed 100% Feeding Ability Independent # Voids 1 1 Weight 132 lb 8 oz Intake & Output: Intake & Output 08/25/18 08/26/18 08/26/18 21:59 05:59 13:59 Intake Total 240 300 Balance 240 300 Weight 132 lb 8 oz Intake: Oral 240 300 Other: Meal Dinner Percent of Meal Consumed 100% Feeding Ability Independent # Voids 1 1 - General Appearance General appearance: appears started age, fatigue EENT: mucous membranes moist Neck: supple Respiratory: clear Cardiology: no edema Gastrointestinal: no tenderness Integumentary: no rash, warm and dry Neurologic: no focal deficit, alert and oriented x3 Musculoskeletal: no deformities Psychiatric: mood/affect appropriate, cooperative - Lab 08/26/18 03:55 08/26/18 03:55 Most recent lab results Calcium 8.9 mg/dl (8.6-10.4) 08/26/18 03:55 Phosphorus 2.2 mg/dL (2.7-4.5) L 08/26/18 03:55 Magnesium 1.9 mg/dL (1.6-2.5) 08/26/18 03:55 Assessment and Plan (1) Acute kidney injury Kemar Farris is a 72-year-old male with diabetes mellitus type 2, hypertension and hyperlipidemia admitted directly from ED in [place], [place] for acute kidney injury on 08/23/18. He was referred to ED from his PCP after he presented for vague symptoms of weakness, anorexia, weight loss and chills which started 3-4 weeks ago. His oral intake was decreased and he felt dehydrated. He was recently started on Topamax. He quit taking Metformin couple days ago, but has been taking other medications until today. No history of kidney or urinary problems other than passing a kidney stone years ago. Acute kidney injury on suspected chronic kidney disease stage 3, present on arrival with metabolic acidosis (both high anion gap and non anion gap since delta AG 3, but delta CO2 5 associated with Topamax which is carbonic anhydrase inhibitor, Metformin and acute kidney injury) and suspected dehydration. He has been taking NSAIDs on and off. No recent IV contrast administration. He reported feeling dehydrated with decreased oral intake. He has been taking Topamax, Metformin, Lisinopril and HCTZ. Work up at [place], [place] on 08/23/18: CT: Normal kidneys except left sided cyst U/A bland CBC: WBC 7.8, Hb 13, PLT 223 BMP: Sodium 138, potassium 4.3, chloride 104, CO2 19, BUN 90, creatinine 4.2, Ca 9.8, albumin 4.4. Work up: Urinalysis on 08/23/18: straw, clear, pH 5, SG 1.015, protein negative, occult blood negative, leukocyte esterase negative. Random urine protein/creatinine on 08/23/18: 210 mg/g creatinine. Random urine sodium on 08/23/18: 73 Progress: Urine output: 1510 ml reported in the past 24 hours. Serum creatinine decreased from 2.3 to 1.8 in the past 24 hours Recommendations: No need for acute hemodialysis. Nephrology will sign off. Status: Acute Priority: High
[2018-08-26] MEDS: PANTOPRAZOLE 40 MG TABLET PO SCH (07:04)
[2018-08-26] MEDS: INSULIN LISPRO 1 UNIT/0.01 ML UNIT SQ SCH (07:05)
--- NOTE | 2018-08-26 07:58 | Discharge Summary ---
Medical - DS: Prov Patient information: Note initiated : 08/26/18 at 7:55 am Service Date, if different from initiated Date: [] Patient: Kemar Farris 72 y/o M admitted on 08/23/18 for acute kidney injury. Chief Complaint: [] Date of admission: 08/23/18 18:45 Discharge date: 08/26/18 Consults: 08/23/18 19:20 Consult to Physician [CONS] Routine Comment: Consulting Provider: Pat Amador Reason For Exam: Physician to Consult Discharging clinician: Alvin Mccall Medical - DS: Meds - Discharge Medications Prescriptions: Omeprazole [PriLOSEC] 20 mg PO ACB #30 cap Active and Home Medications: Home Medications Acetaminophen [Acetaminophen Extra Strength] 1 - 2 mg PO Q6H PRN 08/23/18 [History Confirmed 08/23/18 Last Taken 08/22/18 18:00] Atorvastatin Calcium 40 mg PO DAILY 08/23/18 [History Confirmed 08/23/18 Last Taken 08/22/18 08:00] Topiramate [Topamax] 25 mg PO BID 08/23/18 [History Confirmed 08/23/18 Last Taken Unknown] metFORMIN HCL [Metformin HCl] 850 mg PO BIDCC 08/23/18 [History Confirmed 08/23/18 Last Taken 08/23/18 08:00] Medical - DS: Hosp Hospital course: Mr. Farris is a 72 year old M presented to the hospital today from outside facility as a direct admit The patient has h/o DM, HTN, HLD, presented to the his PCP for evaluation of not feeling well, subjective sensation of chills, and weight loss of 18 lbs over 1 month, his PCP ran some labs which showed a creat > 4.0, pt was therefore sent to the ER The patient notes that approximately 4-6 weeks ago he had an episode of vomiting, and stomach upset, since then he has been having intermittent chills. The patient has had decreased appetite and has not been eating and drinking well since then. He has progressively lost 18 pounds of weight over this time. The patient was concerned about this and finally went to see his primary care provider. His PCP ran some labs found his creatinine was elevated and advised him to go to the emergency room for further evaluation. According to the patient he has had chronic abdominal pain, bloating-like sensation mild no aggravating or relieving factors, he has been taking some NSAIDs for his subjective sensation of chills as well as the abdominal pain and headaches. The patient denies any diarrhea, but has had increased nausea and decreased appetite. The patient has chronic headaches, has had intermittent blurring of vision which she attributes to low sugar values. The patient also reports some dizziness mild. He denies any difficulty in swallowing, he had only one episode of vomiting and since then none, denies any blood in the stools denies any diarrhea. He does admit to having some burning when he pees, he denies any blood in the stools. He denies any cough chest pain shortness of breath skin rashes joint pains he denies any bleeding from gums denies any depression. He does have history of chronic headaches he notes that he has had multiple workup done for same. His PCP started him on topiramate approximately 6 weeks ago. He was on topiramate in the past however has not been released taking it but started taking it at 50 mg strength 6 weeks ago. He stopped it a few days ago. The patient has also been taking his hydrochlorothiazide lisinopril and atorvastatin, he has not been very compliant with his metformin because he was concerned about his sugars dropping In the emergency room at the outside facility, the patient had a normal WBC count at 7.2, hemoglobin 13.3 platelets 223 hematocrit 39.5, sodium 138 potassium 3.8 chloride 104 bicarbonate 19 BUN 90 creatinine 4.2 glucose 195, anion gap 15, total protein was 7.5 calcium 7.8 total bilirubin normal liver function test was normal lipase were mildly elevated at 244, A1c was 7.2 CT abdomen pelvis was done which reports no acute findings, 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 The patient reports he had a chest x-ray done the ER provider did report that the patient chest x-ray was negative I did not find a report along with the paperwork sent The outside facility did not have nephrology coverage and therefore the patient was sent here for further evaluation 08/24 Pt seen examined, no acute overnight issues, tolerating po diet well, renal function improving, creat is 3.2, IVF continuing appreciate Nephrology help wbc normal. 08/25 Pt seen examined, tolerating po diet well, creat improving nicely, still has chills etiology of this is uncertain, no e/o acute infection found d/c IVF today, if creat continues to improve, will d/c home tomorrow. 08/26 Pt seen exained, no acute issues, no new complaints or concerns, creat continues to improve, 1.8 today without any IVF from yesterday he is tolerating po diet very well stable for d/c follow up with PCP in 1 week, PCP to check renal function and decide further course of action. In Summary A/P Acute Kidney Injury -Renal function is improving, was 4.2 on presentation, 1.8 at the time of dishcarge. -Due to dehydration/ decreased intake/ use of HCTZ/lisinopril and NSAIDs. CT is neg for hydronephrosis. Nephrology was consulted during the hospital stay. Nausea/ Abdominal discomfort/ weight loss - could be from use of topiramate, Uremia could be causing same, PPI for now. CT Was negative. tsh, hiv negative -outpatient follow up with PCP -will be discharged on prilosec 20mg daily Chills - etiology? no e/o infection, labs stable, PCP follow up. Acidosis (resolved) - Pt has bicarb of 26 today, acidotic from topiramate(has carbonic anhydrase like activity), vs renal failure, IV fluids for now, pt making urine DM -ssi insulin for now.hold metformin as creatinine is not back to normal, PCP to recheck renal function, and then decide if metformin can be safely resumed. HTN -Hold meds, pt not taking any, advise not to take diuretics / RENETTA till seen by PCP Discharge diagnosis: Renal failure, - Time Spent with Patient Total time spent providing and/or coordinating discharge services: Less than 30 minutes Medical - DS: Exam - Constitutional Vitals: Vital Signs Temp Pulse Pulse Resp BP Pulse Ox 08/26/18 07:15 54 L 16 97 08/26/18 06:55 97.8 F 52 L 16 137/73 97 08/26/18 03:55 98.1 F 55 L 18 123/71 98 08/25/18 22:54 98.2 F 58 L 16 132/81 98 08/25/18 18:52 98.7 F 70 16 131/74 98 08/25/18 15:57 97.8 F 74 18 122/72 98 08/25/18 11:22 98.6 F 20 122/74 98 Intake and Output 08/25/18 08/26/18 08/26/18 21:59 05:59 13:59 Intake Total 240 300 Balance 240 300 Intake: Oral 240 300 Other: Meal Dinner Percent of Meal Consumed 100% Feeding Ability Independent # Voids 1 1 Weight 132 lb 8 oz Additional comments: Constitutional; Afebrile, cooperative, alert, not in distress. Respiratory system: Air Entry equal on both sides, No crackles or wheezing, no rhonchi. CVS- Rate rhythm regular, S1,S2 heard, no gallop, no rub. Abdomen- Soft nontender abdomen, no organomegaly, no tenderness, no guarding or rigidity, KNIF[place]AN- AOOx3, moving all extremities, no gross focal deficit noted. Medical - DS: Data Labs on day of discharge: Labs from last 24 hours 08/26/18 08/26/18 03:55 03:55 WBC 8.6 RBC 3.37 L Hgb 10.8 L Hct 32.7 L MCV 97.0 MCH 32.2 MCHC 33.2 RDW 13.0 Plt Count 139 L MPV 10.4 Gran % 64.0 Lymph % (Auto) 25.7 [place] % (Auto) 7.0 Eos % (Auto) 2.9 Baso % (Auto) 0.4 Gran # 5.5 Lymph # (Auto) 2.2 [place] # (Auto) 0.6 Eos # (Auto) 0.3 Baso # (Auto) 0 Sodium 141 Potassium 3.8 Chloride 107 Carbon Dioxide 24 Anion Gap 10.0 BUN 25 H Creatinine 1.8 H GFR Calculation 37 Glucose 152 H Uric Acid 6.0 Calcium 8.9 Phosphorus 2.2 L Magnesium 1.9 Total Bilirubin 0.4 Direct Bilirubin < 0.2 GGT 11 AST 12 ALT 12 Alkaline Phosphatase 41 Lactate Dehydrogenase 145 Total Protein 5.8 L Albumin 3.4 Globulin 2.4 Albumin/Globulin Ratio 1.4 Triglycerides 167 H Preliminary micro results at discharge 08/23/18 19:39 Blood Culture - Preliminary Blood 08/23/18 19:26 Blood Culture - Preliminary Blood Medical - DS: A/P - Patient/Caregiver Discharge Instructions Diet: Consistent Carbohydrate Additional Instructions: Please do not take your blood pressure medications, do not take metformin till you are seen by your Primary care provider Make sure you see your PCP in 1 week, make sure you PCP checks your kidney function. He will decide when to resume metformin and other blood pressure medications I have started you on prilosec, once daily, take this medication 30mins before food. If you develop fever, chest pain, shortness of breath or any other acute concern, go to the ER for further evaluation. - Follow up Plan Disposition: Home, Self-Care Prognosis: Fair Rehab Potential: Fair I certify that the patient requires SNF services: No Overall status at discharge: patient is progressing back to baseline Medical - DS: Qual - VTE Deep Vein Thrombosis/Pulmonary Embolism Present on Admission: No
[2018-08-26] MEDS: ATORVASTATIN 20 MG TABLET PO SCH (08:53)
[2018-08-26] MEDS: HEPARIN 5,000 UNIT/ML VIAL SQ SCH (08:56)
[2018-08-26] MEDS: DOCUSATE SODIUM 100 MG CAPSULE PO SCH (08:56)
== END 2018-08-26 09:27 | disposition home or self-care (01) | DRG 683 ==
LOC: MEDSUR 18:45
PROVIDERS: ADMIT Internal Medicine; ATTEND Internal Medicine